=== PATIENT | male | born 1985 | race Caucasian/White ===

== ENCOUNTER 2018-05-30 09:40 | Emergency (ER) | payer OTHER ==
[~2018-05-30] VITALS: Ht 175.3 cm; Wt 93.0 kg
--- NOTE | ~2018-05-30 | EKG ---
[place] [address] [facility] [place] [address] ELECTROCARDIOGRAM REPORT Name: LOOCINDY [id number] Admission: 05/30/18 Attend Phys: Discharge: 05/30/18 Date of : 89 Report #: [id number] THIS REPORT FOR: //name// [facility] ED Test Date: 2018-05-30 Test Time: 10:10:19 Pat Name: CINDY LOO Department: Room: Gender: Nursing Tech: patricia : 1985 Requested By: Ashley Lincoln Order Number: [id number] MD: Shashank Hernandez Measurements Intervals [place] Rate: 77 P: 16 [place]: 170 QRS: 87 QRSD: 93 T: 18 QT: 340 QTc: 385 Interpretive Statements Sinus rhythm Normal tracing No previous ECG available for comparison Electronically Signed On 05-31-2018 8:46:22 CDT by Shashank Hernandez [email or web address] <ELECTRONICALLY SIGNED> By: Shashank Hernandez MD, [facility] 05/31/18 [id number] Shashank Hernandez MD, FACC /EPI
[2018-05-30] MEDS ORDERED: MOBIC7.5 MG PO (10:56)
[2018-05-30 11:28] VITALS: BP 106/72
== END 2018-05-30 11:31 | disposition home or self-care (01) ==
LOC: ER 09:40
DX: R07.89 Other chest pain (principal)